=== PATIENT | female | born 1970 | race Two or more races ===

== ENCOUNTER → 2022-02-18 | Emergency (ER) | payer MEDICAID ==
[~2022-02-18] VITALS: Ht 165.1 cm; Wt 82.8 kg
[~2022-02-18] MED LIST: ACET-1304 PO; GABA300C10 PO; HYDROcodone-ACET 5/325MG TAB PO ONE; IBUP800T27 PO; KETOROLAC TROMETH 60MG/2ML VIAL IM ONE
[2022-02-18 23:30] VITALS: BP 135/72
== END | disposition home or self-care (01) ==
LOC: ER 18:03
DX: R51.9 Headache, unspecified (principal); E11.9 Type 2 diabetes mellitus without complications; E78.5 Hyperlipidemia, unspecified; J45.909 Unspecified asthma, uncomplicated; Z90.710 Acquired absence of both cervix and uterus
CPT/HCPCS: 70450; 70486; 72125; 96372; 99284; J1885